=== PATIENT | male | born 1990 | race Caucasian/White ===

== ENCOUNTER 2017-03-17 12:07 | Day surgery (SDC) | payer SELFPAY ==
--- NOTE | 2017-03-04 08:20 | HP ---
PREOPERATIVE HISTORY AND PHYSICAL: DATE OF EXAMINATION: 03/03/17. DATE OF ADMISSION: 03/17/17 - This patient is scheduled for same-day surgery admission by Dr. Becker on 03/17/17. ATTENDING SURGEON: Dr. Armond Becker * (dictated by Lv Silva NP). CHIEF COMPLAINT: Recurrent perirectal abscesses, possible fistula in ano. HISTORY OF PRESENT ILLNESS: The patient is a 26-year-old male known to Dr. Becker with recurrent perirectal abscesses requiring incision and drainage. The most recent procedure was 02/08/17. At that time, there was consideration for possibility of a fistula in ano. Dr. Becker has discussed the findings with the patient and has recommended exam under anesthesia, possible fistulotomy, and possible seton placement as a same-day surgery procedure at [facility]. Dr. Becker discussed the nature of the procedure, the relevant risks, benefits, and today I reviewed the expected postoperative care and recovery. The patient has had chance to ask questions and stated that he understands the information and is satisfied with the answers given to his questions. He will sign surgical consent on the day of surgery. Today, he denies any perirectal pain or drainage. PAST MEDICAL HISTORY: Generally healthy. No acute or chronic conditions. PAST SURGICAL HISTORY: Incision and drainage of perirectal abscesses, August 2016 and 02/08/[address] Becker. MEDICATIONS: None currently. ALLERGIES: No known drug allergies. FAMILY HISTORY: Parents are alive and well. No known anesthesia complications , bleeding tendencies or clotting disorders in the family. 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 REVIEW OF SYSTEMS: Constitutional: No fever or chills. Hematologic: No easy bruising or bleeding. No history of blood transfusions. Respiratory: No cough or dyspnea on exertion. Cardiovascular: No anginal chest pain or palpitations. No history of deep vein thrombosis or pulmonary embolism. Gastrointestinal: No nausea or vomiting; the patient has loose stools and states that he might have irritable bowel syndrome and as described in history of present illness has had recurrent perianal abscesses. Genitourinary: Denies dysuria. Musculoskeletal: Denies back or joint pain. Skin: Vitiligo. Neurologic: No headache. No blurred vision. Normal gait. No sensory problems. General: No previous anesthesia reactions. PHYSICAL EXAMINATION GENERAL SURVEY: The patient is a 26-year-old male well developed, well nourished, in no acute distress. VITAL SIGNS: Height 71.5 inches, weight 187 pounds. Blood pressure 118/70, pulse 84, respirations 18, temperature 99.2. Body mass index 25.7. SKIN: Warm, dry, intact. Areas of vitiligo noted over the lower extremities. No rash or ulcerations. HEENT: Benign. NECK: Supple. No cervical lymphadenopathy. BACK: No CVA tenderness. LUNGS: Breath sounds bilaterally clear and equal. HEART: Regular rate and rhythm. No murmurs or rubs appreciated. ABDOMEN: Active bowel sounds. Soft, nondistended, nontender throughout. No obvious masses, organomegaly, or evidence of umbilical hernia. GENITALIA EXAM: Deferred. RECTAL EXAM: No erythema or drainage. Previous incision and drainage site of perirectal abscess at 3 o'clock position appears well healed without any recurrent infection. EXTREMITIES: Warm without edema or skin ulceration. NEUROLOGIC: Alert and oriented x3. Steady gait. IMPRESSION: Recurrent perirectal abscesses, possible fistula in ano. PLAN: Same-day surgery admission to Dr. Becker's service on 03/17/17 , for exam under anesthesia, possible fistulotomy, possible seton placement. LV SILVA, ARSH [id number]/[facility] #: [id number] [facility] CENTERGarcia
[~2017-03-17 12:07] MED LIST: Buffered Lidocaine 0.9% SYRIN* 5 ML/SYR SYRINGE INTRADERM ONE; Famotidine IV* 10 MG/ML 2 ML (20 mg) IV ONE; Ondansetron INJ* 2 MG/ML VIAL IV ONE
[2017-03-17] MEDS ORDERED: ceFAZolin 2 GM PREMIX (*) 50 ML IVPB ONE (12:48)
[2017-03-17] MEDS ORDERED: Ondansetron INJ* 2 MG/ML VIAL ONE ×2 (12:48→15:11)
[2017-03-17] MEDS ORDERED: Famotidine IV* 10 MG/ML 2 ML (20 mg) ONE (12:48)
[2017-03-17] MEDS ORDERED: Midazolam* 1 MG/ML 5 ML VIAL (5 MG) ONE (14:32)
[2017-03-17] MEDS ORDERED: HYDROcodone/ACETAMIN 5-325 MG* 1 TAB PO PRN (14:34)
[2017-03-17] MEDS ORDERED: fentaNYL* 50 MCG/ML 2 ML VIAL (100 MCG VIAL) IV PRN (14:34)
[2017-03-17] MEDS ORDERED: PROCHLORPERAZINE INJ 5 MG/ML 2 ML VIAL IV PRN (14:34)
[2017-03-17] MEDS ORDERED: oxyCODONE/Acetamin 5/325 MG* TAB PO PRN ×2 (14:34→15:19)
[2017-03-17] MEDS ORDERED: Bupivacaine 0.25% SDV* 30 ML ONE (14:36)
[2017-03-17] MEDS ORDERED: Methylene Blue 0.5 %* 50 MG/10 ML AMP IV ONE (14:36)
[2017-03-17] MEDS ORDERED: Gelfoam 12-7 ADSORBABL SPONGE* 1 EA SPONGE ONE (14:37)
[2017-03-17] MEDS ORDERED: KETAMINE HCL* 50 MG/ML 10 ML VIAL ONE (14:45)
[2017-03-17] MEDS ORDERED: fentaNYL* 50 MCG/ML 2 ML VIAL (100 MCG VIAL) ONE (14:45)
[2017-03-17] MEDS ORDERED: Propofol* 10 MG/ML 20 ML BTL IV PUSH ONE (14:45)
[2017-03-17] MEDS ORDERED: Lidocaine 2% PF * 5 ML VIAL ONE (14:45)
[2017-03-17] MEDS ORDERED: Midazolam* 1 MG/ML 2 ML VIAL (2 MG) ONE (14:56)
[2017-03-17 15:46] VITALS: BP 117/63
--- NOTE | 2017-04-08 06:52 | OP ---
CC: [facility] OPERATIVE REPORT: DATE OF OPERATION: 03/17/17 DATE OF : 89 SURGEON: Armond Becker MD LEGAL INVESTIGATOR: YANG Chanel ANESTHESIA: Local, MAC anesthesia. PRE-OP DIAGNOSIS: Perirectal pain, rule out perianal fistula. POST-OP DIAGNOSIS: Perirectal pain, rule out perianal fistula. OPERATIVE PROCEDURE: Anal exam under anesthesia and biopsy of perianal skin. BLOOD LOSS: Minimal. SPECIMEN: Skin biopsy. FLUIDS: 500 cc of crystalloid fluid given. DRAINS: None. DESCRIPTION OF PROCEDURE: The patient was identified in the preoperative area, brought to the opera ting room, placed on the operating table in the prone position. Gentle sedation was given. Patient' s buttock cheeks were taped apart and he was placed in a jackknife prone position. Perianal area wa s prepped with Betadine and he was draped and a time-out was performed. Previously noted drainage site at the right was again identified. This scarring was consistent with previous incision site and showed no evidence of induration and was otherwise well healed. The janina s was then dilated to 3 fingers and an anal retractor placed. There was no evidence of shotty mucos a or dentate line consistent with fistula. We did see some perianal lesions consistent with general ly wart-like material, but these were away from our previous disease. Patient had multiple episodes of abscesses on the right side of the perianal region and perirectal region, but this was completely closed over, I did not entertain opening it up to attempt probing. Anoscope was placed and there w ere no internal hemorrhoids. There was no evidence of internal opening and I abandoned the procedur e to look for any fistula. We did take biopsy with cautery of one of the small frond-like lesions a nd passed this off as specimen. The patient was then woken up and transferred to the PACU in stable condition. [id number]/[facility] #: [id number]
== END 2017-03-17 16:21 | disposition home or self-care (01) ==
LOC: OR 12:07
PROVIDERS: ATTEND Surgery
DX: A63.0 Anogenital (venereal) warts (principal)
CPT/HCPCS: 88305; 88342; A9270-GY; J0690; J2250; J2405; J2704; J3010

== ENCOUNTER 2017-10-03 14:44 | Observation (INO) | payer SELFPAY ==
[2017-10-03] MEDS ORDERED: Ondansetron INJ* 2 MG/ML VIAL IV ONE (17:35)
[2017-10-03] MEDS ORDERED: NS 0.9% 1000 ML* 2,000 ML IV ONE (17:35)
[2017-10-03 18:02] LABS: Hematocrit 43 % (42-52); Mean Corpuscular HGB Conc 35 g/dl (31-36); Mean Corpuscular Hemoglobin 31 pg (27-31); Mean Corpuscular Volume 88 fL (80-94); Mean Platelet Volume 7.7 um3 (7.4-10.4); Platelet Count 218 10^3/ul (150-450); Red Blood Count 4.92 10^6/ul (4.0-5.4); Red Cell Distribution Width 12 % (10.5-15); White Blood Count 19.1 10^3/ul (3.5-10.8)
[2017-10-03 18:08] LABS: INR 0.95 (0.77-1.02)
[2017-10-03 18:11] LABS: Urine Appearance Clear; Urine Blood Negative (Negative); Urine Color Straw; Urine Ketones Negative (Negative); Urine Protein Negative (Negative); Urine Specific Gravity 1.003 (1.010-1.030); Urine Urobilinogen Negative (Negative)
[2017-10-03 18:19] LABS: EGFR Non-African American 145.9 (>60)
[2017-10-03 18:36] LABS: ABS Basophils 0.1 10^3/ul (0-0.2); ABS Eosinophils 0.1 10^3/ul (0-0.6); ABS Lymphocytes 1.4 10^3/ul (1.0-4.8); ABS Monocytes 1.4 10^3/ul (0-0.8); ABS Neutrophils 16.1 10^3/ul (1.5-7.7); ABS Nucleated RBC 0 10^3/ul; Eosinophil % 0.4 % (0-6); Lymphocyte % 7.5 % (25-47); Nucleated Red Blood Cells % 0.1
[2017-10-03] MEDS ORDERED: Iohexol 300* (CONTRAST) 10 ML SDV IV ONE (18:47)
--- NOTE | 2017-10-03 20:03 | RAD ---
CLINICAL HISTORY: Right upper quadrant, periumbilical pain COMPARISON: None TECHNIQUE: Multiple contiguous axial CT scans were obtained of the abdomen and pelvis after the administration of intravenous contrast. Coronal and sagittal multiplanar reformations are submitted for review. Oral contrast was administered. Delayed images were obtained through the abdomen and pelvis. FINDINGS: LUNG BASES: The lung bases are clear. LIVER: The liver is normal in shape, size, contour, and attenuation. BILE DUCTS: There is no intrahepatic or extrahepatic biliary dilatation. GALLBLADDER: The gallbladder is normal, without pericholecystic inflammatory change. PANCREAS: The pancreas is normal, without mass or ductal dilatation. SPLEEN: Normal in size and appearance. UPPER GI TRACT: Evaluation of the gastrointestinal tract is limited by incomplete gastric distention. The upper GI tract is unremarkable. SMALL BOWEL AND MESENTERY: The small bowel is normal in contour, course, and caliber. There is no obstruction or dilatation. COLON: The colon is normal in contour, course, caliber. There is no pericolonic inflammatory change. There is a tubular, vermiform, hollow viscus, that is blind-ending and originates from the cecum, consistent with the appendix. This measures 1.1 cm in caliber. There is mild stranding of the periappendiceal fat. There is no loculated fluid collection to suggest abscess. ADRENALS: Normal bilaterally. KIDNEYS: The kidneys are normal in shape, size, contour, and axis. There is no hydronephrosis or nephrolithiasis. BLADDER: The bladder is smooth in contour. PELVIC ORGANS: The prostate gland is normal. The seminal vesicles are symmetric. AORTA: The aorta is normal. IVC: Unremarkable LYMPH NODES: There is no lymphadenopathy by size criteria. ABDOMINAL WALL: There is no evidence for abdominal wall hernia. BONES AND SOFT TISSUES: The bones and soft tissues are unremarkable. OTHER: None IMPRESSION: ACUTE APPENDICITIS.
--- NOTE | 2017-10-03 20:48 | ED ---
Andrey Valentino Stephanie, scribed for Roc Moncada MD on 10/03/17 at 1741 . Abdominal Pain/Male - HPI Summary HPI Summary: The pt is a 26 y/o M presenting to the ED with c/o abd pain that began at at 20:00. Symptoms include back pain, diarrhea, dysuria and emesis. The pt denies fever, chills, and nausea. The pt states he took ibuprofen without relief. - History of Current Complaint Chief Complaint: EDAbdPain Stated Complaint: ABD PAIN Time Seen by Provider: 10/03/17 15:06 Hx Obtained From: Patient Onset/Duration: Gradual Onset, Lasting Days - 1, Still Present Timing: Constant Severity Currently: Moderate Pain Intensity: 5 Pain Scale Used: 0-10 Numeric Location: Diffuse Radiates: Yes Radiates to: Back Aggravating Factor(s): Nothing Alleviating Factor(s): Nothing Associated Signs And Symptoms: Positive: Back Pain, Vomiting, Diarrhea, Other - dysuria. Negative: Fever, Nausea - Allergies/Home Medications Allergies/Adverse Reactions: Allergies Allergy/AdvReac Type Severity Reaction Status Date / Time No Known Allergies Allergy Verified 03/17/17 12:28 PMH/Surg Hx/FS Hx/Imm Hx Endocrine/Hematology History: Denies: Hx Diabetes, Hx Thyroid Disease Cardiovascular History: Denies: Hx Hypertension Respiratory History: Denies: Hx Asthma, Hx Chronic Obstructive Pulmonary Disease (COPD) GI History: Reports: Hx Irritable Bowel - undiagnosed Denies: Hx Ulcer Sensory History: Denies: Hx Contacts or Glasses, Hx Hearing Aid Opthamlomology History: Denies: Hx Contacts or Glasses - Surgical History Surgery Procedure, Year, and Place: NONE Infectious Disease History: No Infectious Disease History: Denies: Hx Hepatitis, Hx Human Immunodeficiency Virus (HIV), Traveled Outside the [place] in Last 30 Days - Family History Known Family History: Positive: Cardiac Disease, Hypertension, Diabetes, Other - cancer - Social History Occupation: Employed Part-time Lives: With Family Alcohol Use: Occasionally Hx Substance Use: Yes Substance Use Type: Reports: Marijuana Hx Tobacco Use: Yes Smoking Status (MU): Former Smoker Amount Used/How Often: smoked for approx 2-3 years 1pack per week or less Review of Systems Negative: Fever, Chills Positive: Abdominal Pain, Vomiting, Diarrhea. Negative: Nausea Positive: dysuria Positive: Other - back pain All Other Systems Reviewed And Are Negative: Yes Physical Exam - Summary Physical Exam Summary: General: well-appearing, no pain distress Skin: warm, color reflects adequate perfusion, dry Head: normal Eyes: EOMI, LANI ENT: normal Neck: supple, nontender Respiratory: CTA, breath sounds present Cardiovascular: RRR Abdomen: soft, tender to palpation around the umbilicus, RLQ and suprapubic region Bowel: positive bowel sounds Musculoskeletal: normal, strength/ROM intact Neurological: normal, sensory/motor intact, A&O x3 Psychological: affect/mood appropriate Triage Information Reviewed: Yes Vital Signs On Initial Exam: Initial Vitals Temp Pulse Resp BP Pulse Ox 98.1 F 100 18 138/73 100 10/03/17 15:00 10/03/17 15:00 10/03/17 15:00 10/03/17 15:00 10/03/17 15:00 Vital Signs Reviewed: Yes Diagnostics - Vital Signs Vital Signs Temp Pulse Resp BP Pulse Ox 10/03/17 17:00 73 124/69 97 10/03/17 16:30 77 125/73 98 10/03/17 16:17 86 98 10/03/17 16:14 140/67 10/03/17 15:00 98.1 F 100 18 138/73 100 - Laboratory Lab Results: Lab Results 10/03/17 10/03/17 10/03/17 Range/Units 17:28 17:48 17:48 WBC 19.1 H (3.5-10.8) 10^3/ul RBC 4.92 (4.0-5.4) 10^6/ul Hgb 15.0 (14.0-18.0) g/dl Hct 43 (42-52) % MCV 88 (80-94) fL MCH 31 (27-31) pg MCHC 35 (31-36) g/dl RDW 12 (10.5-15) % Plt Count 218 (150-450) 10^3/ul MPV 7.7 (7.4-10.4) um3 Neut % (Auto) 84.5 H (38-83) % Lymph % (Auto) 7.5 L (25-47) % Cross % (Auto) 7.3 H (0-7) % Eos % (Auto) 0.4 (0-6) % Baso % (Auto) 0.3 (0-2) % Absolute Neuts (auto) 16.1 H (1.5-7.7) 10^3/ul Absolute Lymphs (auto) 1.4 (1.0-4.8) 10^3/ul Absolute Monos (auto) 1.4 H (0-0.8) 10^3/ul Absolute Eos (auto) 0.1 (0-0.6) 10^3/ul Absolute Basos (auto) 0.1 (0-0.2) 10^3/ul Absolute Nucleated RBC 0 10^3/ul Nucleated RBC % 0.1 INR (Anticoag Therapy) (0.77-1.02) Sodium 135 L (139-145) mmol/L Potassium 3.7 (3.5-5.0) mmol/L Chloride 99 L (101-111) mmol/L Carbon Dioxide 26 (22-32) mmol/L Anion Gap 10 (2-11) mmol/L BUN 9 (6-24) mg/dL Creatinine 0.66 L (0.67-1.17) mg/dL Est GFR ( Amer) 187.6 (>60) Est GFR (Non-Af Amer) 145.9 (>60) BUN/Creatinine Ratio 13.6 (8-20) Glucose 103 H (70-100) mg/dL Lactic Acid (0.5-2.0) mmol/L Calcium 9.7 (8.6-10.3) mg/dL Total Bilirubin 1.30 H (0.2-1.0) mg/dL AST 14 (13-39) U/L ALT 27 (7-52) U/L Alkaline Phosphatase 56 (34-104) U/L C-Reactive Protein 57.92 H (< 5.00) mg/L Total Protein 7.2 (6.4-8.9) g/dL Albumin 4.4 (3.2-5.2) g/dL Globulin 2.8 (2-4) g/dL Albumin/Globulin Ratio 1.6 (1-3) Lipase < 10 L (11.0-82.0) U/L Urine Color Straw Urine Appearance Clear Urine pH 7.0 (5-9) Ur Specific [place] 1.003 L (1.010-1.030) Urine Protein Negative (Negative) Urine Ketones Negative (Negative) Urine Blood Negative (Negative) Urine Nitrate Negative (Negative) Urine Bilirubin Negative (Negative) Urine Urobilinogen Negative (Negative) Ur Leukocyte Esterase Negative (Negative) Urine Glucose Negative (Negative) 10/03/17 10/03/17 Range/Units 17:48 17:48 WBC (3.5-10.8) 10^3/ul RBC (4.0-5.4) 10^6/ul Hgb (14.0-18.0) g/dl Hct (42-52) % MCV (80-94) fL MCH (27-31) pg MCHC (31-36) g/dl RDW (10.5-15) % Plt Count (150-450) 10^3/ul MPV (7.4-10.4) um3 Neut % (Auto) (38-83) % Lymph % (Auto) (25-47) % Cross % (Auto) (0-7) % Eos % (Auto) (0-6) % Baso % (Auto) (0-2) % Absolute Neuts (auto) (1.5-7.7) 10^3/ul Absolute Lymphs (auto) (1.0-4.8) 10^3/ul Absolute Monos (auto) (0-0.8) 10^3/ul Absolute Eos (auto) (0-0.6) 10^3/ul Absolute Basos (auto) (0-0.2) 10^3/ul Absolute Nucleated RBC 10^3/ul Nucleated RBC % INR (Anticoag Therapy) 0.95 (0.77-1.02) Sodium (139-145) mmol/L Potassium (3.5-5.0) mmol/L Chloride (101-111) mmol/L Carbon Dioxide (22-32) mmol/L Anion Gap (2-11) mmol/L BUN (6-24) mg/dL Creatinine (0.67-1.17) mg/dL Est GFR ( Amer) (>60) Est GFR (Non-Af Amer) (>60) BUN/Creatinine Ratio (8-20) Glucose (70-100) mg/dL Lactic Acid 1.3 (0.5-2.0) mmol/L Calcium (8.6-10.3) mg/dL Total Bilirubin (0.2-1.0) mg/dL AST (13-39) U/L ALT (7-52) U/L Alkaline Phosphatase (34-104) U/L C-Reactive Protein (< 5.00) mg/L Total Protein (6.4-8.9) g/dL Albumin (3.2-5.2) g/dL Globulin (2-4) g/dL Albumin/Globulin Ratio (1-3) Lipase (11.0-82.0) U/L Urine Color Urine Appearance Urine pH (5-9) Ur Specific [place] (1.010-1.030) Urine Protein (Negative) Urine Ketones (Negative) Urine Blood (Negative) Urine Nitrate (Negative) Urine Bilirubin (Negative) Urine Urobilinogen (Negative) Ur Leukocyte Esterase (Negative) Urine Glucose (Negative) Result Diagrams: 10/03/17 17:48 10/03/17 17:48 Lab Statement: Any lab studies that have been ordered have been reviewed, and results considered in the medical decision making process. - CT Abdomen/Pelvis CT Interpretation: Positive (See Comments) CT Interpretation Completed By: Radiologist - ACUTE APPENDICITIS. ED physician has reviewed this report. Re-Evaluation - Re-Evaluation First Eval Re-Evaluation Time: 20:19 Change: Improved - The pt states his pain is mild. Abdominal Pain Fem Course/Dx - Course Course Of Treatment: BP noted and advised to follow up with PCP. DR SHASTA AHUJA , SURGERY, WILL SEE THE PATIENT IN THE ED. ADMIT SURGERY. - Diagnoses Provider Diagnoses: Elevated BP without diagnosis of hypertension, Acute appendicitis - Provider Notifications Discussed Care Of Patient With: Shasta Ahuja Time Discussed With Above Provider: 20:22 Instructed by Provider To: MD Will See In ED Discharge - Sign-Out/Discharge Documenting (check all that apply): Discharge - ADMIT SURGERY - Discharge Plan Condition: Stable Disposition: ADMITTED TO [facility] Referrals: No Primary Care Phys,NOPCP [Primary Care Provider] - Additional Instructions: Your blood pressure was elevated during todays visit; please follow up with your primary care provider within a week for further evaluation. - Billing Disposition and Condition Condition: STABLE Disposition: [facility] The documentation as recorded by the Andrey monique Stephanie accurately reflects the service I personally performed and the decisions made by , Roc Moncada MD.
--- NOTE | 2017-10-03 21:12 | HP ---
H&P (Free Text) History and Physical: Surgery H & P Asked by Dr. Moncada to evaluate a pt. with abdominal pain and a CT suggestive of appendicitis. Mr. Diaz is a 26 y.o. male who reports he first felt abdominal pain after dinner last night. He describes the pain then as a constant cramping pain that was associated with a "full feeling". Today the pain seemed to be more in the low abdomen and didn't hurt as much. He self- induced vomiting but it didn't help; he denies fever chills. He has had his usual diarrhea that he believes is IBS; he denies dysuria other than having to push a little today. He has no appetite right now. PMHx: denies Meds: none NKDA ROS: possible IBS and perianal abscess x 2 SH: neg. tob; occ EtOH, neg IVDA FH: father has perianal abscess hx; there is also stomach cancer in the family and DM PE: General: WDWN male in NAD Vital Signs 10/03/17 10/03/17 10/03/17 15:00 16:14 16:17 Temperature 98.1 F Pulse Rate 100 86 Respiratory 18 Rate Blood Pressure 138/73 140/67 (mmHg) O2 Sat by Pulse 100 98 Oximetry 10/03/17 10/03/17 10/03/17 16:30 17:00 17:25 Temperature Pulse Rate 77 73 97 Respiratory Rate Blood Pressure 125/73 124/69 (mmHg) O2 Sat by Pulse 98 97 98 Oximetry 10/03/17 10/03/17 10/03/17 17:31 17:56 18:00 Temperature Pulse Rate Respiratory Rate Blood Pressure 141/73 138/66 (mmHg) O2 Sat by Pulse 96 Oximetry 10/03/17 10/03/17 10/03/17 18:10 18:30 18:54 Temperature Pulse Rate 84 84 91 Respiratory Rate Blood Pressure 128/68 (mmHg) O2 Sat by Pulse 97 98 98 Oximetry 10/03/17 10/03/17 10/03/17 19:00 19:01 19:30 Temperature Pulse Rate 85 81 Respiratory Rate Blood Pressure 134/67 133/68 (mmHg) O2 Sat by Pulse 97 98 Oximetry HEENT: neg scleral icterus, neg. cervical adenopathy; oral mucosa somewhat dry lungs: clear to ausc. heart: reg. abd: good BS, soft, tender in RLQ, LLQ and suprapubic areas ext: neg. cyanosis, edema Intake & Output 10/03/17 10/03/17 10/03/17 06:59 14:59 22:59 Weight 200 lb Laboratory Results - last 24 hr 10/03/17 10/03/17 10/03/17 17:28 17:48 17:48 WBC 19.1 H RBC 4.92 Hgb 15.0 Hct 43 MCV 88 MCH 31 MCHC 35 RDW 12 Plt Count 218 MPV 7.7 Neut % (Auto) 84.5 H Lymph % (Auto) 7.5 L [place] % (Auto) 7.3 H Eos % (Auto) 0.4 Baso % (Auto) 0.3 Absolute Neuts (auto) 16.1 H Absolute Lymphs (auto) 1.4 Absolute Monos (auto) 1.4 H Absolute Eos (auto) 0.1 Absolute Basos (auto) 0.1 Absolute Nucleated RBC 0 Nucleated RBC % 0.1 INR (Anticoag Therapy) Sodium 135 L Potassium 3.7 Chloride 99 L Carbon Dioxide 26 Anion Gap 10 BUN 9 Creatinine 0.66 L Est GFR ( Amer) 187.6 Est GFR (Non-Af Amer) 145.9 BUN/Creatinine Ratio 13.6 Glucose 103 H Lactic Acid Calcium 9.7 Total Bilirubin 1.30 H AST 14 ALT 27 Alkaline Phosphatase 56 C-Reactive Protein 57.92 H Total Protein 7.2 Albumin 4.4 Globulin 2.8 Albumin/Globulin Ratio 1.6 Lipase < 10 L Urine Color Straw Urine Appearance Clear Urine pH 7.0 Ur Specific [place] 1.003 L Urine Protein Negative Urine Ketones Negative Urine Blood Negative Urine Nitrate Negative Urine Bilirubin Negative Urine Urobilinogen Negative Ur Leukocyte Esterase Negative Urine Glucose Negative 10/03/17 10/03/17 17:48 17:48 WBC RBC Hgb Hct MCV MCH MCHC RDW Plt Count MPV Neut % (Auto) Lymph % (Auto) [place] % (Auto) Eos % (Auto) Baso % (Auto) Absolute Neuts (auto) Absolute Lymphs (auto) Absolute Monos (auto) Absolute Eos (auto) Absolute Basos (auto) Absolute Nucleated RBC Nucleated RBC % INR (Anticoag Therapy) 0.95 Sodium Potassium Chloride Carbon Dioxide Anion Gap BUN Creatinine Est GFR ( Amer) Est GFR (Non-Af Amer) BUN/Creatinine Ratio Glucose Lactic Acid 1.3 Calcium Total Bilirubin AST ALT Alkaline Phosphatase C-Reactive Protein Total Protein Albumin Globulin Albumin/Globulin Ratio Lipase Urine Color Urine Appearance Urine pH Ur Specific [place] Urine Protein Urine Ketones Urine Blood Urine Nitrate Urine Bilirubin Urine Urobilinogen Ur Leukocyte Esterase Urine Glucose A/P: Probable appendicitis. Will proceed to OR for laparoscopic appendectomy. I have explained to him the nature of surgery, its risks, benefits, and alternatives. He understands and agrees to proceed. Romero
[2017-10-03] MEDS ORDERED: Bupivacaine 0.25% SDV* 30 ML ONE (21:41)
[2017-10-03] MEDS ORDERED: Midazolam* 1 MG/ML 5 ML VIAL (5 MG) ONE (21:43)
[2017-10-03] MEDS ORDERED: fentaNYL* 50 MCG/ML 5 ML VIAL (250 MCG VIAL) ONE (21:43)
[2017-10-03] MEDS ORDERED: Atracurium* 10 MG/ML 10 ML VIAL ONE (21:43)
[2017-10-03] MEDS ORDERED: Propofol* 10 MG/ML 20 ML BTL IV PUSH ONE ×2 (21:51→23:39)
[2017-10-03] MEDS ORDERED: Famotidine IV* 10 MG/ML 2 ML (20 mg) ONE (21:51)
[2017-10-03] MEDS ORDERED: Lidocaine 2% PF * 5 ML VIAL ONE (21:52)
[2017-10-03] MEDS ORDERED: Piperacillin/Tazobac ADVAN(*) 3.375 GM in NS 0.9% 50 ML* 50 ML IVPB ONE (23:00)
--- NOTE | 2017-10-03 23:34 | BRIEFOPN ---
Brief Operative Note - Surgery Procedures: Procedures SKIN SUTURE NEC (02/09/96) SUTURE OF LIP LACERATION (05/09/01) 10/03/17 Op Note (dictated) Pre-op dx: appendicitis Post-op dx: same Procedure: lap appy Surgeon: Seymour Asst: none Anesth: general SCDs on during surgery Abx: given pre-op Complications: none Pt.tolerated procedure well and was transferred to in a stable condition. CLFoster
[2017-10-03] MEDS ORDERED: oxyCODONE/Acetamin 5/325 MG* TAB PO PRN ×2 (23:35)
[2017-10-03] MEDS ORDERED: Ibuprofen TAB* 800 MG PO PRN (23:36)
[2017-10-03] MEDS ORDERED: Ondansetron INJ* 2 MG/ML VIAL IV PRN (23:36)
[2017-10-03] MEDS ORDERED: Glycopyrrolate IV* 0.2 MG/ML 1 ML VIAL ONE (23:39)
[2017-10-03] MEDS ORDERED: Neostigmine Methylsulfate* 1 MG/ML 10 ML VIAL (1 mg/ml) ONE (23:39)
[2017-10-03] MEDS ORDERED: Ondansetron INJ* 2 MG/ML VIAL ONE (23:39)
[2017-10-03] MEDS ORDERED: Ketorolac INJ* 30 MG/ML 1 ML VIAL ONE (23:39)
[2017-10-03] MEDS ORDERED: Dexamethasone IV* 4 MG/ML 1 ML (4 MG) ONE (23:39)
[2017-10-03] MEDS ORDERED: Zosyn per Pharmacy* NOTE FOLLOW UP SCH (23:45)
[2017-10-03] MEDS ORDERED: DiMENhydriNATE IV* 50 MG/ML VIAL IV PUSH PRN (23:52)
[2017-10-03] MEDS ORDERED: PROCHLORPERAZINE INJ 5 MG/ML 2 ML VIAL IV PRN (23:52)
[2017-10-03] MEDS ORDERED: Naloxone* 0.4 MG/ML 1 ML VIAL IV PRN (23:52)
[2017-10-03] MEDS ORDERED: fentaNYL* 50 MCG/ML 2 ML VIAL (100 MCG VIAL) IV PRN (23:52)
[2017-10-03] MEDS ORDERED: Morphine INJ* 10 MG/ML 1 ML CARPUJECT ONE (23:56)
[2017-10-03] MEDS: Morphine INJ* 2 MG/ML 1 ML CARPUJECT IV PRN (23:58)
[2017-10-04] MEDS: Morphine INJ* 2 MG/ML 1 ML CARPUJECT IV PRN ×2 (00:04→00:23)
[2017-10-04] MEDS ORDERED: Piperacillin/Tazobac ADVAN(*) 3.375 GM in NS 0.9% 50 ML* 50 ML IVPB ONE (01:15)
[2017-10-04] MEDS ORDERED: Morphine VIAL* 4 MG/ML VIAL (1 ml vial) IV PRN (01:21)
[2017-10-04 05:27] LABS: ABS Basophils 0 10^3/ul (0-0.2); ABS Eosinophils 0 10^3/ul (0-0.6); ABS Lymphocytes 0.7 10^3/ul (1.0-4.8); ABS Monocytes 0.5 10^3/ul (0-0.8); ABS Nucleated RBC 0 10^3/ul; Eosinophil % 0.1 % (0-6); Hematocrit 44 % (42-52); Hemoglobin 14.8 g/dl (14.0-18.0); Mean Corpuscular HGB Conc 34 g/dl (31-36); Mean Corpuscular Hemoglobin 31 pg (27-31); Mean Corpuscular Volume 90 fL (80-94); Nucleated Red Blood Cells % 0; Platelet Count 212 10^3/ul (150-450); Red Blood Count 4.83 10^6/ul (4.0-5.4); Red Cell Distribution Width 13 % (10.5-15); White Blood Count 14.2 10^3/ul (3.5-10.8)
[2017-10-04] MEDS ORDERED: Piperacillin/Tazobactam 13.5 GM IV 24 hour continuous infusion IVPB SCH ×2 (05:30)
[2017-10-04 06:54] VITALS: BP 118/60
--- NOTE | 2017-10-04 09:00 | PN ---
Progress Note - Progress Note Date of Service: 10/04/17 SOAP: Subjective:s/p Lap Appendectomy 10/03/17 at 2300 hungry,minimal pain,walking to br;voiding large amts [] Objective:afeb;VSS;lungs:clear bilat:heart:RRR;abd:+bs,soft;incisions intact with steristrips,no drainage or erythema;Ext:nontender,no edema [] Assessment:stable s/p lap appy [] Plan:discharge home today,instructions reviewed,RX for 5d of Augmentin and Oxycodone/acetaminophen transmitted to [facility];Istop checked []
--- NOTE | 2017-10-04 15:35 | OP ---
CC: Dr. Claudio Marshall * DATE OF OPERATION: 10/03/17 - ROOM #332 DATE OF : [birth year] SURGEON: Shasta Ahuja MD MEDICAL ASSISTANT SUPERVISOR: There was no information assistant for this case. PRE-OP DIAGNOSIS: Appendicitis. POST-OP DIAGNOSIS: Appendicitis. OPERATIVE PROCEDURE: Laparoscopic appendectomy. INDICATIONS: This patient is a 26-year-old male, who presented to the emergency room with abdominal pain and a CAT scan suggested appendicitis. Exam was consistent with appendicitis, so he was prepared for surgery. DESCRIPTION OF PROCEDURE: He was brought to the operating room, placed on the OR table in the supine position, and given general anesthesia. The abdomen was then prepped and draped in the usual sterile fashion. After infiltrating with local anesthetic, an incision was made in the infraumbilical area and subcutaneous tissue was divided bluntly. The fascia was grasped and incised and a 0 Vicryl stitch was placed on either side of the fascial incision. A trocar was inserted into the abdomen and the abdomen was insufflated. Then, under direct visualization, after infiltrating with local anesthetic, a suprapubic port and a left flank port were placed again after infiltrating with local anesthetic. The cecum was grasped and rotated medially. It was noted to have some adhesions that needed to be divided to improve the mobilization of the cecum, but this exposed an acutely inflamed appendix; its base was clear of infectious process. The base was cleared and an Endo GABINO stapler was fired across the base of the appendix and then a second firing was fired across the mesoappendix. The appendix was placed in an EndoCatch bag and withdrawn from the abdomen through the infraumbilical port site. A brief inspection of the rest of the abdomen revealed no obvious abnormalities. The liver and gallbladder appeared normal. There was small and large intestine that were visualized, appeared normal. So, the ports were withdrawn under direct visualization. The previously placed 0 Vicryl was used to close the fascia at the infra-umbilical port site and 4-0 Monocryl was used to close the skin of all incisions. Steri-Strips were applied. All sponge and instrument counts were correct. The patient tolerated the procedure well and was transferred to Recovery in a stable condition. [id number]/[facility] #: [id number] [facility]
--- NOTE | 2017-10-04 23:44 | DS ---
DISCHARGE SUMMARY: DATE OF ADMISSION: 10/03/17 DATE OF DISCHARGE: 10/04/17 ATTENDING SURGEON: Shasta Ahuja MD * (DICTATED BY LV SIMS NP) HOSPITAL COURSE: The patient is a 26-year-old male, who presented to the [facility] Emergency Room with persistent lower abdominal pain, a CAT scan of the abdomen and pelvis was suggestive of appendicitis. Please refer to the admission history and physical for further details. The patient was taken to the operating room on 10/03/17, by Dr. Ahuja and underwent laparoscopic appendectomy. He had an uneventful postoperative course , required minimal pain medication and was able to the meet the criteria for discharge. He was eating a regular diet and ambulating in the halls. He was seen today by myself and Dr. Ahuja and he met the criteria for discharge. PHYSICAL EXAMINATION: General: Well appearing, in no acute distress. Vital Signs: Afebrile and stable. Lungs: Breath sounds bilaterally clear and equal. Heart: Regular rate and rhythm. No murmurs or rubs appreciated. Abdomen: Active bowel sounds, soft. Laparoscopic port sites are intact with Steri-Strips which are clean and dry. No drainage or surrounding erythema. Skin: Warm and dry. Extremities: No edema, nontender. IMPRESSION: Status post laparoscopic appendectomy, postop day #1, doing extremely well. PLAN: Discharge home today. Discharge instructions were reviewed with the patient. He will call our office to set up a followup visit within 1 week. Per the instructions of Dr. Ahuja, Augmentin 875 mg p.o. q.12 hours was prescribed for a 5-day course and he will also have a prescription for oxycodone and acetaminophen as needed and he may also use [id number] ibuprofen for mild pain. LV SIMS NP [id number]/[facility] #: [id number]
== END 2017-10-04 10:10 | disposition home or self-care (01) ==
LOC: ED 14:44 → OR 22:40 → SSU 10-04 01:07
PROVIDERS: ADMIT Surgery; ATTEND Surgery
PROC: 0DTJ4ZZ Resection of Appendix, Percutaneous Endoscopic Approach (ICD-10-PCS; principal; 2017-10-04)
DX: K35.80 Unspecified acute appendicitis (principal); Z87.891 Personal history of nicotine dependence; R10.9 Unspecified abdominal pain
CPT/HCPCS: 36415; 74177; 80053; 81003; 83605; 83690; 85025; 85610; 86140; 88304; 96374; 99284; A9270-GY; C1776; G0378; J1100; J1885; J2250; J2270; J2405; J2543; J2704; J2710; J3010; Q9967

== ENCOUNTER 2018-02-16 00:41 | Emergency (ER) | payer SELFPAY ==
[2018-02-16] MEDS ORDERED: Cephalexin CAP* 500 MG PO ONE (01:33)
--- NOTE | 2018-02-16 01:35 | ED ---
Laceration/Wound HPI - HPI Summary HPI Summary: Complains of laceration to left heel after sliding on a gravel driveway. Bleeding controlled. Denies any other injury or pain. Tetanus status unknown. - History of Current Complaint Stated Complaint: LT HEEL LAC Time Seen by Provider: 02/16/18 00:50 Hx Obtained From: Patient Mechanism of Injury: Sharp/Blunt Trauma Onset Severity: Moderate Current Severity: Moderate Pain Intensity: 5 Pain Scale Used: 0-10 Numeric Associated Signs & Symptoms: Pain - Allergy/Home Medications Allergies/Adverse Reactions: Allergies Allergy/AdvReac Type Severity Reaction Status Date / Time No Known Allergies Allergy Verified 02/16/18 00:55 PMH/Surg Hx/FS Hx/Imm Hx Endocrine/Hematology History: Denies: Hx Anticoagulant Therapy, Hx Diabetes, Hx Thyroid Disease Cardiovascular History: Denies: Hx Hypertension Respiratory History: Denies: Hx Asthma, Hx Chronic Obstructive Pulmonary Disease (COPD) GI History: Reports: Hx Irritable Bowel - undiagnosed Denies: Hx Ulcer Sensory History: Denies: Hx Contacts or Glasses, Hx Hearing Aid Opthamlomology History: Denies: Hx Contacts or Glasses - Surgical History Surgery Procedure, Year, and Place: NONE - Immunization History Immunizations Up to Date: No Infectious Disease History: No Infectious Disease History: Denies: Hx Hepatitis, Hx Human Immunodeficiency Virus (HIV), Traveled Outside the [place] in Last 30 Days - Family History Known Family History: Positive: Cardiac Disease, Hypertension, Diabetes, Other - cancer - Social History Alcohol Use: Occasionally Hx Substance Use: Yes Substance Use Type: Reports: Marijuana Substance Use Comment - Amount & Last Used: everyday smoker marijuana Hx Tobacco Use: Yes Smoking Status (MU): Former Smoker Amount Used/How Often: smoked for approx 2-3 years 1pack per week or less Review of Systems Constitutional: Negative Eyes: Negative ENT: Negative Cardiovascular: Negative Respiratory: Negative Gastrointestinal: Negative Genitourinary: Negative Musculoskeletal: Negative Skin: Other Neurological: Negative Psychological: Normal All Other Systems Reviewed And Are Negative: Yes Physical Exam - Summary Physical Exam Summary: 4 cm laceration on left heel. Triage Information Reviewed: Yes Vital Signs On Initial Exam: Initial Vitals Temp Pulse Resp BP Pulse Ox 98.8 F 78 20 114/69 96 02/16/18 00:45 02/16/18 00:45 02/16/18 00:45 02/16/18 00:45 02/16/18 00:45 Vital Signs Reviewed: Yes Appearance: Positive: Well-Appearing Skin: Positive: Warm Head/Face: Positive: Normal Head/Face Inspection Eyes: Positive: Normal ENT: Positive: Normal ENT inspection Neck: Positive: Supple Respiratory/Lung Sounds: Positive: Clear to Auscultation Cardiovascular: Positive: Normal Abdomen Description: Positive: Nontender Musculoskeletal: Positive: Normal Neurological: Positive: Normal Psychiatric: Positive: Normal AVPU Assessment: Alert - Narcisa Coma Scale Best Eye Response: 4 - Spontaneous Best Motor Response: 6 - Obeys Commands Best Verbal Response: 5 - Oriented Coma Scale Total: 15 Procedures - Laceration/Wound Repair 1 Location: lower extremity Description: Linear Anesthesia: Local, 1.0% Length, Depth and Shape: 4cm x .25 cm Betadine Prep?: No - chlorhexidine prep Irrigated w/ Saline (ccs): 50 - chlorhexidine and saline Laceration/Wound Explored: foreign body removed - multiple small stones Debridement: minimal Suture Type: Prolene Number of Sutures: 5 - 4.0 Layer Closure?: No Diagnostics - Vital Signs Vital Signs Temp Pulse Resp BP Pulse Ox 02/16/18 00:45 98.8 F 78 20 114/69 96 - Laboratory Lab Statement: Any lab studies that have been ordered have been reviewed, and results considered in the medical decision making process. Laceration Repair Course/Dx - Course Course Of Treatment: Complains of laceration to left heel after sliding on a gravel driveway. Bleeding controlled. Denies any other injury or pain. Tetanus status unknown. Physical exam:4 cm laceration on left heel. Sutured. Sutures out in 10 days. Rx for Keflex - Clinical Impression Provider Diagnoses: Laceration Discharge - Sign-Out/Discharge Documenting (check all that apply): Patient Departure - Discharge Plan Condition: Stable Disposition: HOME Prescriptions: Cephalexin CAP* [Keflex CAP*] 500 mg PO TID 5 Days #15 cap Patient Education Materials: Care For Your Stitches (ED), Laceration (ED) Referrals: No Primary Care Phys,NOPCP [Primary Care Provider] - Additional Instructions: Sutures out in 10 days. May wash with warm running water and soap. Do not submerge as in swimming or bathing. Return to the ED for any new or worsening symptoms - Billing Disposition and Condition Condition: STABLE Disposition: Home
[2018-02-16] MEDS ORDERED: Tetan/Diph/Pertus SYR(Tdap)* 0.5 ML SYR(BOOSTRIX) use SYR IM ONE (01:37)
[2018-02-16 01:51] VITALS: BP 126/80
== END 2018-02-16 01:48 | disposition home or self-care (01) ==
LOC: ED 00:41
DX: S91.322A Laceration with foreign body, left foot, initial encounter (principal); W01.0XXA Fall on same level from slipping, tripping and stumbling without subsequent striking against object, initial encounter; Y92.89 Other specified places as the place of occurrence of the external cause; Z23 Encounter for immunization; Z87.891 Personal history of nicotine dependence
CPT/HCPCS: 12032; 90471; 90715; 99282; A9270-GY

== ENCOUNTER 2018-08-11 14:54 | Emergency (ER) | payer SELFPAY ==
[2018-08-11 16:46] LABS: Influenza A Molecular POSITIVE (Negative)
[2018-08-11 16:46] LABS: ABS Basophils 0 10^3/ul (0-0.2); ABS Eosinophils 0.1 10^3/ul (0-0.6); ABS Lymphocytes 1.2 10^3/ul (1.0-4.8); ABS Monocytes 0.6 10^3/ul (0-0.8); ABS Neutrophils 1.4 10^3/ul (1.5-7.7); ABS Nucleated RBC 0 10^3/ul; Eosinophil % 3.1 %; Hematocrit 43 % (42-52); Hemoglobin 14.9 g/dl (14.0-18.0); Mean Corpuscular HGB Conc 35 g/dl (31-36); Mean Corpuscular Hemoglobin 30 pg (27-31); Mean Corpuscular Volume 87 fL (80-94); Mean Platelet Volume 8.2 fL (7.4-10.4); Nucleated Red Blood Cells % 0.3; Platelet Count 176 10^3/ul (150-450); Red Blood Count 4.96 10^6/ul (4.00-5.40); Red Cell Distribution Width 12 % (10.5-15); White Blood Count 3.4 10^3/ul (3.5-10.8)
--- NOTE | 2018-08-11 16:48 | ED ---
Influenza-Like Illness - HPI Summary HPI Summary: 27-year-old male presents with flulike symptoms for the past 4 days. He states he admits to fevers. He admits to cough. Admits to occasional chest pain. He admits to nausea vomiting and diarrhea. Admits to muscle aches. He has been taking Tylenol for symptoms. He has no medical conditions. no family history of cardiac disease. Is nonsmoker. - History of Current Complaint Chief Complaint: EDFluSymptoms Time Seen by Provider: 08/11/18 16:03 - Allergy/Home Medications Allergies/Adverse Reactions: Allergies Allergy/AdvReac Type Severity Reaction Status Date / Time No Known Allergies Allergy Verified 02/16/18 00:55 PMH/Surg Hx/FS Hx/Imm Hx Endocrine/Hematology History: Denies: Hx Anticoagulant Therapy, Hx Diabetes, Hx Thyroid Disease Cardiovascular History: Denies: Hx Hypertension Respiratory History: Denies: Hx Asthma, Hx Chronic Obstructive Pulmonary Disease (COPD) GI History: Reports: Hx Irritable Bowel - undiagnosed Denies: Hx Ulcer Sensory History: Denies: Hx Contacts or Glasses, Hx Hearing Aid Opthamlomology History: Denies: Hx Contacts or Glasses - Surgical History Surgery Procedure, Year, and Place: NONE Infectious Disease History: No Infectious Disease History: Denies: Hx Hepatitis, Hx Human Immunodeficiency Virus (HIV), Traveled Outside the [place] in Last 30 Days - Family History Known Family History: Positive: Cardiac Disease, Hypertension, Diabetes, Other - cancer - Social History Alcohol Use: Occasionally Hx Substance Use: Yes Substance Use Type: Reports: Marijuana Substance Use Comment - Amount & Last Used: everyday smoker marijuana Hx Tobacco Use: No Smoking Status (MU): Former Smoker Amount Used/How Often: smoked for approx 2-3 years 1pack per week or less Review of Systems Positive: Fever Positive: Nasal Discharge Positive: Chest Pain Positive: Cough. Negative: Shortness Of Breath Positive: Vomiting, Nausea All Other Systems Reviewed And Are Negative: Yes Physical Exam Triage Information Reviewed: Yes Vital Signs On Initial Exam: Initial Vitals Temp Pulse Resp BP Pulse Ox 99.2 F 96 16 139/84 98 08/11/18 14:57 08/11/18 14:57 08/11/18 14:57 08/11/18 14:57 08/11/18 14:57 Vital Signs Reviewed: Yes Appearance: Positive: Well-Appearing Skin: Positive: Warm, Dry Head/Face: Positive: Normal Head/Face Inspection Eyes: Positive: Normal, EOMI, LANI, Conjunctiva Clear ENT: Positive: Normal ENT inspection, Pharynx normal, TMs normal Respiratory/Lung Sounds: Positive: Clear to Auscultation, Breath Sounds Present Cardiovascular: Positive: Normal, RRR Abdomen Description: Positive: Nontender, Soft Bowel Sounds: Positive: Present Musculoskeletal: Positive: Normal Neurological: Positive: Normal Psychiatric: Positive: Normal Diagnostics - Vital Signs Vital Signs Temp Pulse Resp BP Pulse Ox 08/11/18 14:57 99.2 F 96 16 139/84 98 - Laboratory Lab Results: Lab Results 08/11/18 08/11/18 Range/Units 16:15 16:42 WBC 3.4 L (3.5-10.8) 10^3/ul RBC 4.96 (4.00-5.40) 10^6/ul Hgb 14.9 (14.0-18.0) g/dl Hct 43 (42-52) % MCV 87 (80-94) fL MCH 30 (27-31) pg MCHC 35 (31-36) g/dl RDW 12 (10.5-15) % Plt Count 176 (150-450) 10^3/ul MPV 8.2 (7.4-10.4) fL Neut % (Auto) 42.6 % Lymph % (Auto) 35.0 % [place] % (Auto) 19.0 % Eos % (Auto) 3.1 % Baso % (Auto) 0.3 % Absolute Neuts (auto) 1.4 L (1.5-7.7) 10^3/ul Absolute Lymphs (auto) 1.2 (1.0-4.8) 10^3/ul Absolute Monos (auto) 0.6 (0-0.8) 10^3/ul Absolute Eos (auto) 0.1 (0-0.6) 10^3/ul Absolute Basos (auto) 0 (0-0.2) 10^3/ul Absolute Nucleated RBC 0 10^3/ul Nucleated RBC % 0.3 Influenza A (Rapid) Positive A (Negative) Result Diagrams: 08/11/18 16:15 08/11/18 16:15 Lab Statement: Any lab studies that have been ordered have been reviewed, and results considered in the medical decision making process. - Radiology chest Radiology Interpretation Completed By: Radiologist Summary of Radiographic Findings: IMPRESSION: No active cardiopulmonary disease is noted. - EKG No standard instances Cardiac Rate: NL EKG Rhythm: Sinus Rhythm EKG Comparison: No Significant Change Summary of EKG Findings: sinus rhythm Flu Symptom Course/Dx - Course Course Of Treatment: 27-year-old male presents with flulike symptoms for the past 4 days. He states he admits to fevers. He admits to cough. Admits to occasional chest pain. He admits to nausea vomiting and diarrhea. Admits to muscle aches. He has been taking Tylenol for symptoms. He has no medical conditions. no family history of cardiac disease. Is nonsmoker. On exam lungs clear to auscultation. White blood cell count low. Electrolytes normal. Chest x-ray normal. Flu a is positive. Patient is out of range for Tamiflu. Told to treat supportively. Patient understands agrees with plan. - Diagnoses Differential Diagnosis/HQI/PQRI: Positive: Influenza, Pneumonia, Upper Respiratory Infection Provider Diagnoses: Influenza Discharge - Sign-Out/Discharge Documenting (check all that apply): Patient Departure Patient Received Moderate/Deep Sedation with Procedure: No - Discharge Plan Condition: Good Disposition: HOME Patient Education Materials: Influenza (ED) Forms: *Work Release Referrals: No Primary Care Phys,NOPCP [Primary Care Provider] - Additional Instructions: take tyenlol or ibuprofen every 6 hours as needed for fever Drink plenty of fluids Return to ED if develop any new or worsening symptoms - Billing Disposition and Condition Condition: GOOD Disposition: Home
[2018-08-11 16:50] LABS: Albumin 4.5 g/dL (3.2-5.2); Albumin/Globulin Ratio 1.8 (1-3); BUN/Creatinine Ratio 14.1 (8-20); EGFR African American 130.8 (>60); EGFR Non-African American 108.1 (>60); Globulin 2.5 g/dL (2-4); Potassium 3.6 mmol/L (3.5-5.0); Total Bilirubin 0.3 mg/dL (0.2-1.0)
[2018-08-11 17:33] VITALS: BP 121/67
== END 2018-08-11 17:31 | disposition home or self-care (01) ==
LOC: ED 14:54
DX: J10.1 Influenza due to other identified influenza virus with other respiratory manifestations (principal); R07.89 Other chest pain; Z87.891 Personal history of nicotine dependence; Z82.49 Family history of ischemic heart disease and other diseases of the circulatory system; Z83.3 Family history of diabetes mellitus; Z80.9 Family history of malignant neoplasm, unspecified
CPT/HCPCS: 36415; 71046; 80053; 85025; 93005; 99282

== ENCOUNTER 2019-07-20 18:40 | Emergency (ER) | payer SELFPAY ==
[2019-07-20 18:54] VITALS: BP 139/74
--- NOTE | 2019-07-20 19:09 | UC ---
Skin Complaint HPI - HPI Summary HPI Summary: 28-year-old male comes in with a chief complaint of a rash in his groin. Been bothering him for months. The last week has been worse. 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 He has tried some anti-yeast ointments were which does help some with the symptoms although he is not consistently using it. Denies any dysuria or penile drainage. - History of Current Complaint Chief Complaint: UCSkin Time Seen by Provider: 07/20/19 18:48 Stated Complaint: PERSONAL Pain Intensity: 0 - Allergy/Home Medications Allergies/Adverse Reactions: Allergies Allergy/AdvReac Type Severity Reaction Status Date / Time No Known Allergies Allergy Verified 07/20/19 18:48 PMH/Surg Hx/FS Hx/Imm Hx Previously Healthy: Yes Other History Of: Negative For: Anticoagulant Therapy - Surgical History Surgical History: Yes Surgery Procedure, Year, and Place: appendectomy 2017 - Family History Known Family History: Positive: Cardiac Disease, Hypertension, Diabetes, Other - cancer - Social History Alcohol Use: Occasionally Substance Use Type: Marijuana Substance Use Comment - Amount & Last Used: daily Smoking Status (MU): Former Smoker Amount Used/How Often: smoked for approx 2-3 years 1pack per week or less When Did the Patient Quit Smoking/Using Tobacco: quit approx 6 years ago Review of Systems All Other Systems Reviewed And Are Negative: Yes Constitutional: Positive: Negative Skin: Positive: Other - SEE HPI Eyes: Positive: Negative ENT: Positive: Negative Respiratory: Positive: Negative Cardiovascular: Positive: Negative Gastrointestinal: Positive: Negative Genitourinary: Positive: Other - SEE HPI Motor: Positive: Negative Neurovascular: Positive: Negative Musculoskeletal: Positive: Negative Neurological: Positive: Negative Psychological: Positive: Negative Is Patient Immunocompromised?: No Physical Exam Triage Information Reviewed: Yes Appearance: Well-Appearing, No Pain Distress, Well-Nourished Vital Signs: Initial Vital Signs Temp 99 F 07/20/19 18:49 Pulse 77 07/20/19 18:49 Resp 18 07/20/19 18:49 BP 139/74 07/20/19 18:49 Pulse Ox 99 07/20/19 18:49 Vital Signs Reviewed: Yes Eye Exam: Normal Eyes: Positive: Conjunctiva Clear Neck: Positive: Supple Respiratory: Positive: No respiratory distress Musculoskeletal: Positive: Strength Intact Neurological: Positive: Alert Psychological: Positive: Age Appropriate Behavior Skin: Positive: Other - Patient has an erythematous rash over the lower portion of the scrotum on his perineum up through his gluteal fold. Some areas are moist. There are a few satellite lesions. Is no penile discharge. No ulcerations. Course/Dx - Course Course Of Treatment: The rash is most consistent with a yeast rash. Some areas of dry some areas are moist. I wrote a prescription for nystatin powder to be used on the moist areas and also nystatin cream to be used on the dry areas. Also wrote for Keflex for any possible bacterial infection although this does not appear to be cellulitic at this time. By history and examination no evidence of an STI at this time. Patient's to get reevaluated if not improved or worse or any other questions or concerns. - Diagnoses Provider Diagnosis: Rash of groin Discharge ED - Sign-Out/Discharge Documenting (check all that apply): Patient Departure All imaging exams completed and their final reports reviewed: No Studies - Discharge Plan Condition: Stable Disposition: HOME Prescriptions: Cephalexin CAP* [Keflex CAP*] 500 mg PO TID #30 cap Nystatin CREAM* [Nystatin Cream*] 1 applic TOPICAL TID #1 tube Nystatin TOP POWDER* 1 applic TOPICAL TID #1 btl Patient Education Materials: Skin Yeast Infection (ED) Referrals: [facility] [place] [facility]FERRAL [Outside] Additional Instructions: FOLLOW UP WITH YOUR DOCTOR IF NOT COMPLETELY IMPROVED. Apply the nystatin powder to rash areas that more wet. Apply the nystatin cream to dry areas of the rash. GET REEVALUATED SOONER IF NOT IMPROVED OR WORSE OR ANY QUESTIONS OR CONCERNS. - Billing Disposition and Condition Condition: STABLE Disposition: Home
== END 2019-07-20 19:19 | disposition home or self-care (01) ==
LOC: UCEAST 18:40
DX: R21 Rash and other nonspecific skin eruption (principal); Z87.891 Personal history of nicotine dependence
CPT/HCPCS: 99212; G0463